=== PATIENT | male | born 1990 | race African-American/Black ===

== ENCOUNTER 2016-12-28 15:57 | Emergency (ER) | payer SELFPAY ==
[~2016-12-28] VITALS: Ht 190.5 cm; Wt 99.8 kg
[2016-12-28 16:00] VITALS: BP 135/82
--- NOTE | 2016-12-28 16:15 | PHYS DOC ---
Past Medical History Past Medical History: No Pertinent History Past Surgical History: No Surgical History Alcohol Use: None Drug Use: None Adult General Chief Complaint Chief Complaint: CHEST PAIN HPI HPI Patient is a 26 year old AA male who presents with left lower chest wall pain intermittent 10 days. Pain is worse with deep breathing and exertion. Patient states pain is sharp and lasts for seconds at a time. Denies shortness of breath , fever, cough. Denies chest wall tenderness. No leg pain or swelling. Pain is currently denies pain, but rports episode earlier this morning after climbing stairs. Patient is a nonsmoker, denies chronic medical conditions. No family history of early coronary disease. Review of Systems Review of Systems Review symptoms as per history of present illness. Allergies Allergies Allergies Coded Allergies Type Severity Reaction Last Updated Verified No Known Drug Allergies 07/15/13 No Physical Exam Physical Exam Constitutional: Well developed, well nourished, no acute distress, non-toxic appearance. [] HENT: Normocephalic, atraumatic, bilateral external ears normal, oropharynx moist, no oral exudates, nose normal. [] Eyes: PERRL. [] Neck: Normal range of motion, no tenderness, supple, no stridor. [] Cardiovascular:Heart rate regular rhythm, no murmur. Negative Homans signs. [] Lungs & Thorax: Bilateral breath sounds clear to auscultation [] Abdomen: Bowel sounds normal, soft, nontender[] Skin: Warm, dry, no erythema, no rash. [] Back: No tenderness. [] Extremities: No tenderness[] Neurologic: Alert and oriented X 3, normal motor function, normal sensory function. [] Psychologic: Affect normal, judgement normal, mood normal. [] Current Patient Data Vital Signs Vital Signs Date Time Temp Pulse Resp B/P (MAP) Pulse Ox O2 Delivery O2 Flow Rate FiO2 12/28/16 16:00 98.4 69 16 135/82 (99) 99 Room Air 98.4 EKG EKG [EKG: Sinus rhythm, rate 90, no acute ST-T wave changes, shortness 440. Left atrial abnormality] Radiology/Procedures Radiology/Procedures [Chest x-ray: No acute cardiopulmonary disease] Course & Med Decision Making Course & Med Decision Making Pertinent Labs and Imaging studies reviewed. (See chart for details) [Patient with atypical chest pain and normal evaluation. EKG, chest x-ray unremarkable. Vital signs normal. No symptoms in the ED. Recommend supportive care with PCP follow-up. Return precautions reviewed.] Dragon Disclaimer Dragon Disclaimer This electronic medical record was generated, in whole or in part, using a voice recognition dictation system. Departure Departure Impression: Primary Impression: Chest wall pain Disposition: 02 TRANSFER T-[facility] HOS[facility] Condition: GOOD Referrals: NO PCP (PCP) Additional Instructions: You were evaluated emergency department for chest pain. An EKG and chest x-ray were performed and are normal. Your exam is consistent with chest wall pain. Please take Aleve twice daily for the next 5 days and follow-up with primary care physician if symptoms persist. Return to the ED if new or worsening symptoms. RAPHAEL GALLEGOS DO Dec 28, 2016 16:15
--- NOTE | 2016-12-28 16:37 | RAD ---
2 view CXR: Clinical indications: Chest wall pain today. Comparison: August 28, 2008. Findings: No acute lung infiltrate or pleural effusion or pulmonary edema or lung mass or pneumothorax is seen. The heart size, pulmonary vasculature, mediastinum and both ebony are unremarkable. The osseous structures appear intact. Impression: No acute radiographic abnormality is seen.
--- NOTE | 2016-12-28 17:18 | EKG ---
[facility] [address] [place] [id number] Test Date: 2016-12-28 Test Time: 16:05:35 Pat Name: SEVERO POP Department: Room: Gender: M Leasing Manager: : 1990 Requested By: RAPHAEL GALLEGOS Order Number: [id number] Reading MD: Measurements Intervals [place] Rate: 61 P: 33 RI: 162 QRS: -23 QRSD: 90 T: 19 QT: 362 QTc: 366 Interpretive Statements SINUS RHYTHM LEFTWARD AXIS NO SPECIFIC ECG ABNORMALITIES RI6.01 No previous ECG available for comparison
== END 2016-12-28 16:46 | disposition home or self-care (01) ==
LOC: ER 15:57
DX: R07.89 Other chest pain (principal)
CPT/HCPCS: 71020; 93005; 99285-25

== ENCOUNTER 2018-03-15 06:23 | Emergency (ER) | payer SELFPAY ==
[~2018-03-15] VITALS: Ht 190.5 cm; Wt 102.1 kg
[2018-03-15 08:05] VITALS: BP 131/79
[2018-03-15] MEDS ORDERED: AMOX875T PO (08:32)
--- NOTE | 2018-03-15 08:34 | PHYS DOC ---
Past Medical History Past Medical History: No Pertinent History Past Surgical History: No Surgical History Alcohol Use: None Drug Use: None Adult General Chief Complaint Chief Complaint: EARACHE/EAR PAIN HPI HPI Patient is a 28 year old [f__sex] who presents with [] Review of Systems Review of Systems Constitutional: Denies fever or chills [] Eyes: Denies change in visual acuity, redness, or eye pain [] HENT: Denies nasal congestion or sore throat [] Respiratory: Denies cough or shortness of breath [] Cardiovascular: No additional information not addressed in HPI [] GI: Denies abdominal pain, nausea, vomiting, bloody stools or diarrhea [] : Denies dysuria or hematuria [] Musculoskeletal: Denies back pain or joint pain [] Integument: Denies rash or skin lesions [] Neurologic: Denies headache, focal weakness or sensory changes [] Endocrine: Denies polyuria or polydipsia [] All other systems were reviewed and found to be within normal limits, except as documented in this note. Allergies Allergies Allergies Coded Allergies Type Severity Reaction Last Updated Verified No Known Drug Allergies 07/15/13 No Physical Exam Physical Exam Constitutional: Well developed, well nourished, no acute distress, non-toxic appearance. [] HENT: Normocephalic, atraumatic, bilateral external ears normal, oropharynx moist, no oral exudates, nose normal. [] Eyes: PERRLA, EOMI, conjunctiva normal, no discharge. [] Neck: Normal range of motion, no tenderness, supple, no stridor. [] Cardiovascular:Heart rate regular rhythm, no murmur [] Lungs & Thorax: Bilateral breath sounds clear to auscultation [] Abdomen: Bowel sounds normal, soft, no tenderness, no masses, no pulsatile masses. [] Skin: Warm, dry, no erythema, no rash. [] Back: No tenderness, no CVA tenderness. [] Extremities: No tenderness, no cyanosis, no clubbing, ROM intact, no edema. [] Neurologic: Alert and oriented X 3, normal motor function, normal sensory function, no focal deficits noted. [] Psychologic: Affect normal, judgement normal, mood normal. [] Current Patient Data Vital Signs Vital Signs Date Time Temp Pulse Resp B/P (MAP) Pulse Ox O2 Delivery O2 Flow Rate FiO2 03/15/18 08:05 97.7 70 16 131/79 (96) 97 Room Air 97.7 EKG EKG [] Radiology/Procedures Radiology/Procedures [] Course & Med Decision Making Course & Med Decision Making Pertinent Labs and Imaging studies reviewed. (See chart for details) [] Dragon Disclaimer Dragon Disclaimer This electronic medical record was generated, in whole or in part, using a voice recognition dictation system. Departure Departure Impression: Primary Impression: Otitis media Disposition: HOME, SELF-CARE Condition: STABLE Referrals: NO PCP (PCP) Patient Instructions: Otitis Media, Adult Additional Instructions: Take the antibiotic as directed. You may use ibuprofen or Tylenol for pain or fever. Follow-up with your primary care provider in 4 days for recheck or return to the emergency department if worsening. Scripts Amoxicillin (AMOXICILLIN) 875 Mg Tablet 1 TAB PO BID for otitis media, #20 TAB Prov: MERLIN CARDONA APRN 03/15/18 MERLIN CARDONA APRN Mar 15, 2018 08:34
== END 2018-03-15 08:40 | disposition home or self-care (01) ==
LOC: ER 06:23
DX: H66.91 Otitis media, unspecified, right ear (principal)
CPT/HCPCS: 99283

== ENCOUNTER 2019-09-04 23:44 | Emergency (ER) | payer OTHER ==
[~2019-09-04] VITALS: Ht 190.5 cm; Wt 118.4 kg
[~2019-09-04 23:44] MED LIST: AMOX875T PO
[2019-09-05 00:33] LABS: BILIRUBIN,URINE NEGATIVE (NEG); CLARITY,URINE CLEAR; COLOR,URINE YELLOW; NITRITE,URINE NEGATIVE (NEG); PH,URINE 5.5 (<5.0-8.0); PROTEIN,URINE NEGATIVE (NEG-TRACE); UROBILINOGEN,URINE 0.2 mg/dL (0.2 mg/dL)
[2019-09-05 00:53] LABS: BACTERIA,URINE FEW /HPF (0-FEW); SQUAMOUS EPITHELIAL CELL,UR OCC /LPF
[2019-09-05] MEDS ORDERED: CIPR500T PO (01:02)
[2019-09-05] MEDS ORDERED: HYDR-3164 PO (01:02)
--- NOTE | 2019-09-05 01:02 | PHYS DOC ---
Past Medical History Past Medical History: No Pertinent History Past Surgical History: No Surgical History Smoking Status: Never Smoker Alcohol Use: None Drug Use: None General Adult EDM: Chief Complaint: PAIN ON URINATION HPI: HPI: Patient is a 29 year old male who presents with complaint of some mild urinary discomfort and left-sided testicular pain this been going on for the last couple of days. Patient states that he has had no penile discharge. [] Review of Systems: Review of Systems: Constitutional: Denies fever or chills. [] Eyes: Denies change in visual acuity. [] HENT: Denies nasal congestion or sore throat. [] Respiratory: Denies cough or shortness of breath. [] Cardiovascular: Denies chest pain or edema. [] GI: Denies abdominal pain, nausea, vomiting, bloody stools or diarrhea. [] : Denies dysuria. [] Musculoskeletal: Denies back pain or joint pain. [] Integument: Denies rash. [] Neurologic: Denies headache, focal weakness or sensory changes. [] Endocrine: Denies polyuria or polydipsia. [] Lymphatic: Denies swollen glands. [] Psychiatric: Denies depression or anxiety. [] Heart Score: Risk Factors: Risk Factors: DM, Current or recent (<one month) smoker, HTN, HLP, family history of CAD, obesity. Risk Scores: Score 0 - 3: 2.5% MACE over next 6 weeks - Discharge Home Score 4 - 6: 20.3% MACE over next 6 weeks - Admit for Clinical Observation Score 7 - 10: 72.7% MACE over next 6 weeks - Early Invasive Strategies Allergies: Allergies: Allergies Coded Allergies Type Severity Reaction Last Updated Verified No Known Drug Allergies 07/15/13 No Physical Exam: PE: Constitutional: Well developed, well nourished, no acute distress, non-toxic appearance. [] Neck: Normal range of motion, no tenderness, supple. [] Cardiovascular: Regular rate and rhythm [] Lungs & Thorax: Bilateral breath sounds clear to auscultation [] Abdomen: Bowel sounds normal, soft, no tenderness. [] Skin: Warm, dry, no erythema, no rash. [] Extremities: No tenderness, no cyanosis, no clubbing, ROM intact, no edema. [] Neurologic: Alert and oriented X 3, no focal deficits noted. [] Current Patient Data: Labs: Laboratory Tests Test 6/27/20 00:23 Urine Collection Type Unknown Urine Color Yellow Urine Clarity Clear Urine pH 5.5 (<5.0-8.0) Urine Specific [place] >=1.030 (1.000-1.030) Urine Protein Negative mg/dL (NEG-TRACE) Urine Glucose (UA) Negative mg/dL (NEG) Urine Ketones (Stick) Negative mg/dL (NEG) Urine Blood Negative (NEG) Urine Nitrite Negative (NEG) Urine Bilirubin Negative (NEG) Urine Urobilinogen Dipstick 0.2 mg/dL (0.2 mg/dL) Urine Leukocyte Esterase Negative (NEG) Urine RBC 1-2 /HPF (0-2) Urine WBC 1-4 /HPF (0-4) Urine Squamous Epithelial Cells Occ /LPF Urine Bacteria Few /HPF (0-FEW) Urine Mucus Marked /LPF Vital Signs: Vital Signs Date Time Temp Pulse Resp B/P (MAP) Pulse Ox O2 Delivery O2 Flow Rate FiO2 09/05/19 00:07 97.5 63 22 134/65 (88) 97 Room Air 97.5 EKG: EKG: [] Radiology/Procedures: Radiology/Procedures: [] Course & Med Decision Making: Course & Med Decision Making Pertinent Labs and Imaging studies reviewed. (See chart for details) [] Dragon Disclaimer: Dragon Disclaimer: This electronic medical record was generated, in whole or in part, using a voice recognition dictation system. Departure Departure Impression: Primary Impression: Epididymitis Disposition: 01 HOME, SELF-CARE Condition: STABLE Referrals: NO PCP (PCP) Patient Instructions: Epididymitis Scripts Hydrocodone/Apap 5-325 (NORCO 5-325 TABLET) 1 Each Tablet 1-2 EACH PO PRN Q6HRS PRN for PAIN, #15 as needed for pain Prov: PAVEL GARCIA Jr. DO 09/05/19 Ciprofloxacin Hcl (CIPROFLOXACIN HCL) 500 Mg Tablet 1 TAB PO BID, #20 TAB Prov: PAVEL GARCIA Jr. DO 09/05/19 Justicifation of Admission Dx: Justifications for Admission: Justification of Admission Dx: Comment: (Not applicable) PAVEL GARCIA Jr. DO Sep 05, 2019 01:02
[2019-09-05] MEDS ORDERED: CIPROFLOXACIN HCL 250 MG TABLET. PO ONE (01:15)
[2019-09-05] MEDS ORDERED: HYDROcodone/APAP 5/325MG 1 TAB TABLET PO ONE (01:15)
[2019-09-05 01:20] VITALS: BP 127/59
== END 2019-09-05 01:25 | disposition home or self-care (01) ==
LOC: ER 23:44
DX: N45.1 Epididymitis (principal); R30.9 Painful micturition, unspecified
CPT/HCPCS: 81001; 99283